=== PATIENT | female | born 2000 | race American Indian/Alaskan Native ===

== ENCOUNTER 2020-07-17 00:10 | Emergency (ER) | payer OTHER ==
[2020-07-17 01:28] LABS: Basophils % (Auto) 0.5 % (0.0-1.8); Hematocrit 41.7 % (30.3-42.9); Hemoglobin 13.7 gm/dl (10.1-14.3); Lymphocytes # (Auto) 1.4 K/mm3 (1.2-5.4); Lymphocytes % (Auto) 30.2 % (13.4-35.0); Mean Corpuscular HGB Conc 33 % (30-34); Mean Corpuscular Volume 86 fl (79-97); Monocytes # (Auto) 0.5 K/mm3 (0.0-0.8); Monocytes % (Auto) 10.8 % (0.0-7.3); Platelet Count 270 K/mm3 (140-440); Red Blood Count 4.83 M/mm3 (3.65-5.03); Red Cell Distribution Width 14.9 % (13.2-15.2)
[2020-07-17 01:34] LABS: BUN/Creatinine Ratio 19; Blood Urea Nitrogen 15 mg/dL (7-17); Calcium 10.1 mg/dL (8.4-10.2); Hemolysis Index 3
[2020-07-17 01:40] LABS: Bacteria,Urine 1+ /HPF (Negative); Bilirubin,Urine NEG (Negative); Blood,Urine NEG (Negative); Color,Urine Amber (Yellow); Mucus,Urine 3+ /HPF
[2020-07-17 01:42] LABS: Amphetamine Screen,Urine PRESUMPTIVE NEGATIVE; Benzodiazepines Screen,Urine PRESUMPTIVE NEGATIVE; Cannabinoid Screen,Urine PRESUMPTIVE POSITIVE; Cocaine Screen,Urine PRESUMPTIVE NEGATIVE; Methadone Screen,Urine PRESUMPTIVE NEGATIVE; Opiate Screen,Urine PRESUMPTIVE NEGATIVE
--- NOTE | 2020-07-17 02:10 | Emergency Department Report ---
HPI - General Chief Complaint: Psych Time Seen by Provider: 07/17/20 01:58 - HPI HPI: Room 13 The patient is a 20-year-old female present with a chief complaint of paranoia and delusions. The patient presents with a flat affect and acknowledges that darion lea gave her mother a note today stating that technology is listening to her. The patient states she was referring to personalized ads. The patient also acknowledged that she stated that people were "after" her and that she does not feel safe. The patient would not offer any further details into the statement. Patient denies suicidal or homicidal ideation. Patient denies auditory or visual hallucinations ED Past Medical Hx - Past Medical History Previous Medical History?: No - Surgical History Past Surgical History?: No - Family History Family history: no significant - Social History Smoking Status: Former Smoker Substance Use Type: Alcohol, Marijuana ED Review of Systems ROS: Stated complaint: MH EVAL Other details as noted in HPI Constitutional: no symptoms reported Respiratory: no symptoms reported Endocrine: no symptoms reported Psychiatric: denies: auditory hallucinations, visual hallucinations, homicidal thoughts, suicidal thoughts Physical Exam - Physical Exam Vital Signs: Vital Signs 07/17/20 07/17/20 00:44 01:49 Temperature 98 F Pulse Rate 99 H Respiratory 18 16 Rate Blood Pressure 150/99 [Left] O2 Sat by Pulse 98 98 Oximetry Physical Exam: GENERAL: The patient is well-developed well-nourished female sitting on stretcher not appearing to be in acute distress. [] HEENT: Normocephalic. Atraumatic. Extraocular motions are intact. Patient has moist mucous membranes. NECK: Supple. Trachea midline CHEST/LUNGS: Clear to auscultation. There is no respiratory distress noted. HEART/CARDIOVASCULAR: Regular. There is no tachycardia. There is no gallop rub or murmur. ABDOMEN: Abdomen is soft, nontender. Patient has normal bowel sounds. There is no abdominal distention. SKIN: There is no rash. There is no edema. There is no diaphoresis. NEURO: The patient is awake, alert, and oriented. The patient is cooperative. The patient has normal speech MUSCULOSKELETAL: There is no evidence of acute injury. ED Course Vital Signs 07/17/20 07/17/20 00:44 01:49 Temperature 98 F Pulse Rate 99 H Respiratory 18 16 Rate Blood Pressure 150/99 [Left] O2 Sat by Pulse 98 98 Oximetry ED Medical Decision Making - Lab Data Result diagrams: 07/17/20 00:35 07/17/20 00:35 Laboratory Tests 07/17/20 07/17/20 07/17/20 00:35 00:35 00:35 WBC RBC Hgb Hct MCV MCH MCHC RDW Plt Count Lymph % (Auto) [place] % (Auto) Eos % (Auto) Baso % (Auto) Lymph # [place] # Eos # Baso # Seg Neutrophils % Seg Neutrophils # Sodium 138 Potassium 4.3 Chloride 98.4 Carbon Dioxide 21 L Anion Gap 23 BUN 15 Creatinine 0.8 Estimated GFR > 60 BUN/Creatinine Ratio 19 Glucose 115 H Calcium 10.1 HCG, Qual Urine Color Urine Turbidity Urine pH Ur Specific [place] Urine Protein Urine Glucose (UA) Urine Ketones Urine Blood Urine Nitrite Urine Bilirubin Urine Urobilinogen Ur Leukocyte Esterase Urine WBC (Auto) Urine RBC (Auto) U Epithel Cells (Auto) Urine Bacteria (Auto) Urine Mucus Salicylates < 0.3 L Urine Opiates Screen Urine Methadone Screen Acetaminophen 5.0 L Ur Barbiturates Screen Ur Phencyclidine Scrn Ur Amphetamines Screen U Benzodiazepines Scrn Urine Cocaine Screen U Marijuana (THC) Screen Drugs of Abuse Note Plasma/Serum Alcohol 07/17/20 07/17/20 07/17/20 00:35 00:35 00:49 WBC 4.7 RBC 4.83 Hgb 13.7 Hct 41.7 MCV 86 MCH 28 MCHC 33 RDW 14.9 Plt Count 270 Lymph % (Auto) 30.2 [place] % (Auto) 10.8 H Eos % (Auto) 0.0 Baso % (Auto) 0.5 Lymph # 1.4 [place] # 0.5 Eos # 0.0 Baso # 0.0 Seg Neutrophils % 58.5 Seg Neutrophils # 2.8 Sodium Potassium Chloride Carbon Dioxide Anion Gap BUN Creatinine Estimated GFR BUN/Creatinine Ratio Glucose Calcium HCG, Qual Negative Urine Color Urine Turbidity Urine pH Ur Specific [place] Urine Protein Urine Glucose (UA) Urine Ketones Urine Blood Urine Nitrite Urine Bilirubin Urine Urobilinogen Ur Leukocyte Esterase Urine WBC (Auto) Urine RBC (Auto) U Epithel Cells (Auto) Urine Bacteria (Auto) Urine Mucus Salicylates Urine Opiates Screen Urine Methadone Screen Acetaminophen Ur Barbiturates Screen Ur Phencyclidine Scrn Ur Amphetamines Screen U Benzodiazepines Scrn Urine Cocaine Screen U Marijuana (THC) Screen Drugs of Abuse Note Plasma/Serum Alcohol < 0.01 07/17/20 07/17/20 Unknown Unknown WBC RBC Hgb Hct MCV MCH MCHC RDW Plt Count Lymph % (Auto) [place] % (Auto) Eos % (Auto) Baso % (Auto) Lymph # [place] # Eos # Baso # Seg Neutrophils % Seg Neutrophils # Sodium Potassium Chloride Carbon Dioxide Anion Gap BUN Creatinine Estimated GFR BUN/Creatinine Ratio Glucose Calcium HCG, Qual Urine Color [place] Urine Turbidity Slightly-cloudy Urine pH 5.0 Ur Specific [place] 1.039 H Urine Protein 100 mg/dl Urine Glucose (UA) Neg Urine Ketones 80 Urine Blood Neg Urine Nitrite Neg Urine Bilirubin Neg Urine Urobilinogen 2.0 Ur Leukocyte Esterase Neg Urine WBC (Auto) 6.0 Urine RBC (Auto) 4.0 U Epithel Cells (Auto) 12.0 Urine Bacteria (Auto) 1+ Urine Mucus 3+ Salicylates Urine Opiates Screen Presumptive negative Urine Methadone Screen Presumptive negative Acetaminophen Ur Barbiturates Screen Presumptive negative Ur Phencyclidine Scrn Presumptive negative Ur Amphetamines Screen Presumptive negative U Benzodiazepines Scrn Presumptive negative Urine Cocaine Screen Presumptive negative U Marijuana (THC) Screen Presumptive positive Drugs of Abuse Note Disclamer Plasma/Serum Alcohol - Differential Diagnosis Delusional disorder, schizophrenia, bipolar disorder Critical care attestation.: If time is entered above; I have spent that time in minutes in the direct care of this critically ill patient, excluding procedure time. ED Disposition Clinical Impression: Delusional disorder Disposition: [id number]/TX-[id number] PSY HOSP/PSY UNIT Is pt being admited?: No Does the pt Need Aspirin: No Condition: Stable Referrals: PRIMARY CARE, [Primary Care Provider] - 3-5 Days
--- NOTE | 2020-07-17 15:50 | Consultation ---
History of Present Illness - Reason for Consult Consult date: 07/17/20 Reason for consult: SI - History of Present Psychiatric Illness The patient's medical record was reviewed and the patient's progress was discussed with the nursing staff. The nurse note states the patient states I need to leave because I know what real love is now" I asked patient to just have a seat in her room to discuss her feelings with a MH set up technician. Patient stated I feel great now and lied earlier so I need to leave. During my interview with the patient today, she is lying down awake. She is calm and cooperative. She is smiling. She is pleasant and conversational. The patient states "I laid here and thought over night." She then says "it was selfish of me to think this way and be here for this." She says "you all have real patients who need this bed like him." She then points at the patient on the phone. The patient says "I thought it would make that man want me, so I was really just trying to get his attention." She says, "I feel good. My thoughts and emotions are much clearer now." She denies SI/HI. The patient also denies any fear or feelings of endangerment. She says, "Ma'am, I'm not suicidal or homicidal at all. I have no thoughts of hurting myself." She then says, "I need my butt kicked for allowing my two girls to see me act like this." The patient denies hallucinations of any kind. She says "I'm supposed to start a good job with good pay this morning." She says, "I'm gone see if I still have it." REVIEW OF SYSTEMS Constitutional: Negative for weight loss ENT: Negative for stridor Respiratory: Negative for cough or hemoptysis All other systems reviewed and are negative MENTAL STATUS EXAMINATION General Appearance: Dressed appropriately Behavior: Calm, cooperative. Pleasant. Good eye contact. Mood: "Good" Affect and affective range: Congruent with stated mood Speech: Normal volume, Regular rate and rhythm Thought Process: Goal directed Thought Content: Suicidal Ideation: Denies Homicidal Ideation: Denies Hallucinations: Denies Delusions: None elicited Insight and Judgment: Limited Memory/Cognition: Normal Attention: Normal, Assessment Generalized Anxiety Disorder TREATMENT PLAN No scripts given Risks, benefits and alternatives of medications discussed with the patient, questions answered and consent obtained from patient. PSYCHOTHERAPY: Supportive psychotherapy provided MEDICAL: Per primary team DELIRIUM PRECAUTIONS: Please re-orient patient frequently, keep lights on during the day, and minimize benzodiazepines and opiates as these medications could worsen patient's confusion. PRECISION LENS GENERATOR: Defer to primary DISPOSITION: Do not recommend acute inpatient psychiatric hospitalization at this time. The patient understands that if any fear or feelings of endangerment are to arise, she is to seek immediate assistance including but not limited to the crisis hotline, 911 and/or ER. The set up technician is to give her resources to set up outpatient psychiatric services, and cognitive behavioral therapy. The patient to follow up with outpatient psychiatry or primary in 7 to 14 days upon discharge Will sign off. Thank you for the consult. Please contact with any questions and/or concerns. Medications and Allergies Allergies Allergy/AdvReac Type Severity Reaction Status Date / Time No Known Allergies Allergy Unverified 07/17/20 00:32 Mental Status Exam - Vital signs Last Vital Signs Temp 98.6 F 07/17/20 09:07 Pulse 78 07/17/20 09:07 Resp 20 07/17/20 09:07 BP 120/82 07/17/20 09:07 Pulse Ox 99 07/17/20 09:07 Results Result Diagrams: 07/17/20 00:35 07/17/20 00:35 Abnormal lab results 07/17/20 07/17/20 07/17/20 Range/Units 00:35 00:35 00:35 [place] % (Auto) (0.0-7.3) % Carbon Dioxide 21 L (22-30) mmol/L Glucose 115 H (65-100) mg/dL Ur Specific [place] (1.003-1.030) Salicylates < 0.3 L (2.8-20.0) mg/dL Acetaminophen 5.0 L (10.0-30.0) ug/mL 07/17/20 07/17/20 Range/Units 00:35 Unknown [place] % (Auto) 10.8 H (0.0-7.3) % Carbon Dioxide (22-30) mmol/L Glucose (65-100) mg/dL Ur Specific [place] 1.039 H (1.003-1.030) Salicylates (2.8-20.0) mg/dL Acetaminophen (10.0-30.0) ug/mL All other labs normal.
[2020-07-17] MEDS ORDERED: ZIPRASIDONE MESYLATE 20 MG VIAL IM ONE (18:12)
[2020-07-17] MEDS ORDERED: WATER FOR INJ Sterile (PF) 10 ML ONE (18:15)
[2020-07-17 19:47] VITALS: BP 109/74
== END 2020-07-17 20:00 ==
LOC: ED 00:10
DX: F22 Delusional disorders (principal); Z87.891 Personal history of nicotine dependence; F12.10 Cannabis abuse, uncomplicated
CPT/HCPCS: 36415; 80048; 80307; 81001; 84703; 85025; 96372; 99285; J3486; 80320; G0480